=== PATIENT | male | born 1955 | race Hispanic/Latino ===

== ENCOUNTER 2018-01-17 09:02 | Emergency (ER) | payer SELFPAY ==
--- NOTE | 2018-01-17 12:00 | RAD ---
2 VIEW RIGHT FOREARM: Date: 01/17/18 INDICATION: Injury, pain. FINDINGS: Scattered degenerative change present without fracture or dislocation. IMPRESSION: No acute osseous abnormality. POS: [facility]
--- NOTE | 2018-01-17 12:01 | RAD ---
3 VIEW RIGHT SHOULDER: Date: 01/17/18 INDICATION: Injury, pain. FINDINGS: There is no fracture or dislocation. Osteoarthritis of the right AC joint is present, mild to moderat e in degree. IMPRESSION: No acute osseous abnormality of the right shoulder. POS: [facility]
--- NOTE | 2018-01-17 12:02 | RAD ---
2 VIEW RIGHT HUMERUS: Date: 01/17/18 INDICATION: Pain, injury. FINDINGS: There is no fracture or dislocation. IMPRESSION: No acute osseous abnormality. POS: [facility]
--- NOTE | 2018-01-17 12:04 | RAD ---
RIGHT HAND 3 VIEWS: Date: 01/17/18 INDICATION: Pain. FINDINGS: Scattered mild osteoarthritis without fracture or dislocation. There is vascular calcification. Punct ate soft tissue density is seen adjacent to the distal ulna. Degenerative cyst formation seen within the carpus, notably the lunate. IMPRESSION: No acute osseous abnormality. POS: [facility]
--- NOTE | 2018-01-17 12:07 | CT ---
HEAD CT NONCONTRAST: Date; 01/17/18 INDICATION: 62-year-old male with pain. FINDINGS: Ventricular system is normal in size. There is minimal chronic ischemic disease of the cerebral white matter. No intracranial hemorrhage, mass effect, or midline shift. There is mild mucosal thickening of the paranasal sinuses. IMPRESSION: No acute intracranial hemorrhage or mass effect. POS: [facility]
--- NOTE | 2018-01-17 12:08 | CT ---
CERVICAL SPINE CT NONCONTRAST: Date: 01/17/18 CLINICAL HISTORY: Fall with neck injury and pain. FINDINGS: There is multilevel moderate degenerative change of the cervical spine with associated straightening of the normal curvature. A prominent disc osteophyte complex at C3-4 effaces the ventral aspect of th e vertebral canal. No discrete fracture or acute dislocation. No evidence of craniocervical distracti on injury. IMPRESSION: No acute osseous abnormality of the cervical spine. POS: [facility]
== END 2018-01-17 12:27 | disposition home or self-care (01) ==
LOC: ERS 09:02
DX: S43.401A Unspecified sprain of right shoulder joint, initial encounter (principal); F17.210 Nicotine dependence, cigarettes, uncomplicated; Z71.6 Tobacco abuse counseling; W01.0XXA Fall on same level from slipping, tripping and stumbling without subsequent striking against object, initial encounter; Y99.0 Civilian activity done for income or pay
CPT/HCPCS: 70450; 72125; 96372; 99406; J2270

== ENCOUNTER 2024-02-03 04:01 | Emergency (ER) | payer SELFPAY ==
[2024-02-03] MEDS ORDERED: Acetaminophen 500 MG TAB ONE (04:37)
[2024-02-03 04:44] LABS: #Basophils 0.03 10x3/uL (0.0-0.2); %Basophils 0.3 % (0.0-1.0); %Eosinophils 1.6 % (0.0-10.0); %Lymphocytes 19.6 % (21.0-51.0); %Monocytes 7.6 % (0.0-10.0); %Neutrophils 70.6 % (42.0-75.0); Hematocrit 39.6 % (42.0-52.0); Hemoglobin 13.8 g/dL (14.0-18.0); Mean Corpuscular HGB CONC 34.8 g/dL (32.0-36.0); Mean Corpuscular Hemoglobin 29.6 pg (27.0-31.0); Mean Platelet Volume 11.5 fL (7.4-10.4); Platelet Count 251 10x3/uL (130-400); RBC Distribution Width 12.2 % (11.5-14.5); Red Blood Cell (RBC) Count 4.66 mill/uL (4.70-6.10)
[2024-02-03 04:53] LABS: Bacteria/HPF None Seen HPF (None Seen); Bilirubin Negative (Negative); Blood, Urine Negative (Negative); CAUTI Indications for Culture Dysuria,urgency,freq; Clarity Clear (Clear); Glucose, Urine (Dipstick) Greater than 1000 mg/dL (Negative); Ketone, Urine Negative (Negative); Leukocyte Negative Leu/uL (Negative); Nitrite Negative (Negative); Protein, Urine (Dipstick) Negative (Neg-Trace); RBC/HPF None Seen HPF (0-3); Specific Gravity, Urine 1.018 (1.002-1.036); Squamous Epithelial 0-3 HPF (0-3); Urobilinogen Normal mg/dL (Less than 2); WBC/HPF 0-3 HPF (0-3)
[2024-02-03 05:04] LABS: Urine Culture Reflex No No
[2024-02-03 05:07] LABS: ALT (SGPT) 12 U/L (8-55); AST (SGOT) 11 U/L (5-34); Albumin 3.7 g/dL (3.4-4.8); Alkaline Phosphatase 139 U/L (40-110); Anion Gap 13 mmol/L (10-20); BUN (Urea Nitrogen) 13 mg/dL (8.4-25.7); Bilirubin, Total 0.3 mg/dL (0.2-1.2); Calc. Creatinine Clearance 0 mL/min (70-130); Calcium 9.6 mg/dL (7.8-10.44); Carbon Dioxide 27 mmol/L (23-31); Chloride 97 mmol/L (98-107); Estimated GFR 93; Globulin 3.8 g/dL (2.4-3.5); Glucose 343 mg/dL (80-115); Potassium 4.3 mmol/L (3.5-5.1); Protein, Total 7.5 g/dL (5.8-8.1); Sodium 133 mmol/L (136-145); Troponin I Less than 0.010 ng/mL (< 0.028)
[2024-02-03 05:24] LABS: Lipase 393 U/L (8-78)
[2024-02-03] MEDS ORDERED: Ketorolac Tromethamine 30 MG (1 mL) VIAL ONE (06:50)
[2024-02-03] MEDS ORDERED: Iopamidol-370 76% 500 ML MDV (1 ML CHARGE) ONE (10:11)
== END 2024-02-03 07:13 | disposition home or self-care (01) ==
LOC: ERS 04:01
DX: K85.90 Acute pancreatitis without necrosis or infection, unspecified (principal); E11.65 Type 2 diabetes mellitus with hyperglycemia; I10 Essential (primary) hypertension; Z79.84 Long term (current) use of oral hypoglycemic drugs; Z79.899 Other long term (current) drug therapy
CPT/HCPCS: 74177; 80053; 81001; 83690; 84484; 85025; 93005; 96374; J1885; Q9967

== ENCOUNTER 2024-02-22 10:44 | Emergency (ER) | payer SELFPAY ==
[2024-02-22 11:27] LABS: #Basophils 0.04 10x3/uL (0.0-0.2); %Basophils 0.4 % (0.0-1.0); %Eosinophils 1.8 % (0.0-10.0); %Lymphocytes 22.6 % (21.0-51.0); %Monocytes 8.3 % (0.0-10.0); %Neutrophils 66.6 % (42.0-75.0); Hemoglobin 13.1 g/dL (14.0-18.0); Mean Corpuscular HGB CONC 34.5 g/dL (32.0-36.0); Mean Corpuscular Hemoglobin 29.8 pg (27.0-31.0); Mean Corpuscular Volume 86.6 fL (78.0-98.0); Platelet Count 282 10x3/uL (130-400); RBC Distribution Width 11.9 % (11.5-14.5); Red Blood Cell (RBC) Count 4.39 mill/uL (4.70-6.10)
[2024-02-22 12:03] LABS: ALT (SGPT) 10 U/L (8-55); AST (SGOT) 12 U/L (5-34); Albumin 3.8 g/dL (3.4-4.8); Alkaline Phosphatase 117 U/L (40-110); Anion Gap 16 mmol/L (10-20); BUN (Urea Nitrogen) 21 mg/dL (8.4-25.7); Bilirubin, Total 0.2 mg/dL (0.2-1.2); Calc. Creatinine Clearance 0 mL/min (70-130); Calcium 9.1 mg/dL (7.8-10.44); Carbon Dioxide 24 mmol/L (23-31); Chloride 96 mmol/L (98-107); Estimated GFR 60; Globulin 3.3 g/dL (2.4-3.5); Glucose 387 mg/dL (80-115); Potassium 4.6 mmol/L (3.5-5.1); Protein, Total 7.1 g/dL (5.8-8.1); Sodium 131 mmol/L (136-145)
[2024-02-22 12:05] LABS: Troponin I Less than 0.010 ng/mL (< 0.028)
[2024-02-22 13:17] LABS: Bacteria/HPF None Seen HPF (None Seen); Bilirubin Negative (Negative); Blood, Urine Negative (Negative); CAUTI Indications for Culture Alt mental st,lethar; Clarity Clear (Clear); Glucose, Urine (Dipstick) Greater than 1000 mg/dL (Negative); Ketone, Urine Negative (Negative); Leukocyte Negative Leu/uL (Negative); Nitrite Negative (Negative); Protein, Urine (Dipstick) 50 mg/dL (Neg-Trace); RBC/HPF 0-3 HPF (0-3); Specific Gravity, Urine 1.021 (1.002-1.036); Squamous Epithelial 0-3 HPF (0-3); Urobilinogen Normal mg/dL (Less than 2); WBC/HPF 0-3 HPF (0-3); Yeast-Budding 1+ HPF (None Seen)
[2024-02-22 13:24] LABS: Urine Culture Reflex No No
== END 2024-02-22 14:23 | disposition home or self-care (01) ==
LOC: ERS 10:44
DX: E11.65 Type 2 diabetes mellitus with hyperglycemia (principal); R42 Dizziness and giddiness; Z75.8 Other problems related to medical facilities and other health care
CPT/HCPCS: 36415; 70450; 71045; 80053; 81001; 83690; 84484; 85025; 93005

== ENCOUNTER 2024-02-27 14:06 | Emergency (ER) | payer SELFPAY ==
[2024-02-27 14:48] LABS: #Basophils 0.04 10x3/uL (0.0-0.2); %Basophils 0.4 % (0.0-1.0); %Eosinophils 0.8 % (0.0-10.0); %Lymphocytes 13.8 % (21.0-51.0); %Monocytes 8.2 % (0.0-10.0); %Neutrophils 76.5 % (42.0-75.0); Hematocrit 36.9 % (42.0-52.0); Hemoglobin 13.1 g/dL (14.0-18.0); Mean Corpuscular HGB CONC 35.5 g/dL (32.0-36.0); Mean Corpuscular Volume 84.4 fL (78.0-98.0); Mean Platelet Volume 11.2 fL (7.4-10.4); Platelet Count 239 10x3/uL (130-400); Red Blood Cell (RBC) Count 4.37 mill/uL (4.70-6.10)
[2024-02-27 15:14] LABS: ALT (SGPT) 11 U/L (8-55); AST (SGOT) 13 U/L (5-34); Albumin 3.7 g/dL (3.4-4.8); Alkaline Phosphatase 104 U/L (40-110); Anion Gap 18 mmol/L (10-20); BUN (Urea Nitrogen) 19 mg/dL (8.4-25.7); Bilirubin, Total 0.3 mg/dL (0.2-1.2); Calc. Creatinine Clearance 0 mL/min (70-130); Calcium 9.2 mg/dL (7.8-10.44); Carbon Dioxide 21 mmol/L (23-31); Chloride 97 mmol/L (98-107); Estimated GFR 54; Globulin 3.4 g/dL (2.4-3.5); Glucose 336 mg/dL (80-115); Potassium 4.2 mmol/L (3.5-5.1); Protein, Total 7.1 g/dL (5.8-8.1); Sodium 132 mmol/L (136-145)
[2024-02-27] MEDS ORDERED: Acetaminophen 500 MG TAB ONE (16:10)
== END 2024-02-27 16:44 | disposition home or self-care (01) ==
LOC: ERS 14:06
DX: E11.65 Type 2 diabetes mellitus with hyperglycemia (principal)
CPT/HCPCS: 36416; 71045; 80053; 85025; 93005

== ENCOUNTER 2024-11-15 10:34 | Emergency (ER) | payer OTHER ==
[2024-11-15 13:27] LABS: #Basophils 0.04 10x3/uL (0.0-0.2); #Eosinophils 0.29 10x3/uL (0.0-0.7); #Monocytes 0.75 10x3/uL (0.11-0.59); #Neutrophils 8.58 10x3/uL (1.40-6.50); %Basophils 0.3 % (0.0-1.0); %Eosinophils 2.5 % (0.0-10.0); %Lymphocytes 16.2 % (21.0-51.0); %Monocytes 6.5 % (0.0-10.0); %Neutrophils 74.2 % (42.0-75.0); Hematocrit 35.5 % (42.0-52.0); Hemoglobin 12.0 g/dL (14.0-18.0); Mean Corpuscular Hemoglobin 28.5 pg (27.0-31.0); Mean Corpuscular Volume 84.3 fL (78.0-98.0); Platelet Count 370 10x3/uL (130-400); Red Blood Cell (RBC) Count 4.21 mill/uL (4.70-6.10); White Blood Cell (WBC) Count 11.58 10x3/uL (4.8-10.8)
[2024-11-15 13:39] LABS: ALT (SGPT) 15 U/L (Less than 45); AST (SGOT) 14 U/L (11-34); Albumin 3.5 g/dL (3.1-4.5); Alkaline Phosphatase 102 U/L (40-110); Anion Gap 17 mmol/L (10-20); BUN (Urea Nitrogen) 11 mg/dL (8.4-25.7); Bilirubin, Total 0.3 mg/dL (0.3-1.2); Calc. Creatinine Clearance 0 mL/min (70-130); Calcium 9.5 mg/dL (7.8-10.44); Carbon Dioxide 23 mmol/L (23-31); Chloride 97 mmol/L (98-107); Globulin 4.3 g/dL (2.4-3.5); Glucose 137 mg/dL (80-115); Potassium 4.2 mmol/L (3.5-5.1); Sodium 133 mmol/L (136-145)
== END 2024-11-15 14:00 | disposition home or self-care (01) ==
LOC: ERS 10:34
DX: J01.00 Acute maxillary sinusitis, unspecified (principal); J01.10 Acute frontal sinusitis, unspecified; I10 Essential (primary) hypertension; F17.210 Nicotine dependence, cigarettes, uncomplicated
CPT/HCPCS: 36416; 80053; 85025; 99283

== ENCOUNTER 2024-11-21 19:00 | Emergency (ER) | payer OTHER ==
[~2024-11-21 19:00] MED LIST: Iopamidol-370 76% 500 ML MDV (1 ML CHARGE) ONE
[2024-11-21 21:01] LABS: #Basophils 0.03 10x3/uL (0.0-0.2); #Eosinophils Less than 0.03 10x3/uL (0.0-0.7); #Monocytes 0.67 10x3/uL (0.11-0.59); #Neutrophils 12.08 10x3/uL (1.40-6.50); %Basophils 0.2 % (0.0-1.0); %Eosinophils 0.1 % (0.0-10.0); %Lymphocytes 8.3 % (21.0-51.0); %Monocytes 4.8 % (0.0-10.0); %Neutrophils 86.1 % (42.0-75.0); Hematocrit 33.8 % (42.0-52.0); Hemoglobin 11.5 g/dL (14.0-18.0); Mean Corpuscular Hemoglobin 28.8 pg (27.0-31.0); Mean Corpuscular Volume 84.7 fL (78.0-98.0); Platelet Count 342 10x3/uL (130-400); Red Blood Cell (RBC) Count 3.99 mill/uL (4.70-6.10); White Blood Cell (WBC) Count 14.03 10x3/uL (4.8-10.8)
[2024-11-21 21:25] LABS: ALT (SGPT) 9 U/L (Less than 45); AST (SGOT) 14 U/L (11-34); Albumin 3.4 g/dL (3.1-4.5); Alkaline Phosphatase 97 U/L (40-110); Anion Gap 16 mmol/L (10-20); BUN (Urea Nitrogen) 7 mg/dL (8.4-25.7); Bilirubin, Total 0.3 mg/dL (0.3-1.2); Calc. Creatinine Clearance 0 mL/min (70-130); Calcium 9.2 mg/dL (7.8-10.44); Carbon Dioxide 21 mmol/L (23-31); Chloride 94 mmol/L (98-107); Globulin 4.0 g/dL (2.4-3.5); Glucose 191 mg/dL (80-115); Potassium 4.4 mmol/L (3.5-5.1); Sodium 127 mmol/L (136-145)
[2024-11-21] MEDS ORDERED: Metoclopramide HCl 10 MG (2 mL) VIAL ONE (21:30)
[2024-11-21] MEDS ORDERED: Ketorolac Tromethamine 30 MG (1 mL) VIAL ONE (23:19)
[2024-11-21 23:41] LABS: Bacteria/HPF None Seen HPF (None Seen); CAUTI Indications for Culture Alt mental st,lethar; Glucose, Urine (Dipstick) 30 mg/dL (Negative); Leukocyte Negative Leu/uL (Negative); Protein, Urine (Dipstick) Negative (Neg-Trace); RBC/HPF 0-3 HPF (0-3); Specific Gravity, Urine 1.014 (1.002-1.036); WBC/HPF None Seen HPF (0-3)
[2024-11-21 23:44] LABS: Urine Culture Reflex No No
[2024-11-22] MEDS ORDERED: cefTRIAXone (ROCEPHIN) 2 GM VIAL ONE (00:17)
[2024-11-22] MEDS ORDERED: VANCOMYCIN 1.75 GM/350 ML Premix BAG IVPB SCH (00:30)
== END 2024-11-22 09:10 | disposition short-term general hospital (02) ==
LOC: ERS 19:00
DX: H70.91 Unspecified mastoiditis, right ear (principal); M26.601 Right temporomandibular joint disorder, unspecified; R29.700 NIHSS score 0; I10 Essential (primary) hypertension; F17.210 Nicotine dependence, cigarettes, uncomplicated; Z79.4 Long term (current) use of insulin; Z75.8 Other problems related to medical facilities and other health care; Z55.6 Problems related to health literacy
CPT/HCPCS: 70450; 70481; 71045; 80053; 81001; 83880; 85025; 85379; 87040; 87428; 93005; 96365; 96366; 96367; 96375; 99285; J0696; J1885; J2765; J3375; Q9967; 36415

== ENCOUNTER 2024-12-10 02:51 | Emergency (ER) | payer SELFPAY ==
[2024-12-10] MEDS ORDERED: Acetaminophen 500 MG TAB ONE (04:18)
[2024-12-10] MEDS ORDERED: diphenhydrAMINE 50 MG/ML VIAL ONE (04:18)
[2024-12-10] MEDS ORDERED: Prochlorperazine 10 MG/2 ML VIAL ONE (04:19)
== END 2024-12-10 08:00 | disposition home or self-care (01) ==
LOC: ERS 02:51
DX: R51.9 Headache, unspecified (principal); I10 Essential (primary) hypertension; F17.210 Nicotine dependence, cigarettes, uncomplicated
CPT/HCPCS: 70450; 96374; 96375; J0780; J1200; J2919

== ENCOUNTER 2025-02-15 12:17 | Inpatient (IN) | payer OTHER ==
[2025-02-15 14:00] LABS: ALT (SGPT) 61 U/L (Less than 45); AST (SGOT) 70 U/L (11-34); Albumin 3.1 g/dL (3.1-4.5); Alkaline Phosphatase 138 U/L (40-110); Anion Gap 14 mmol/L (10-20); BUN (Urea Nitrogen) 7 mg/dL (8.4-25.7); Bilirubin, Total 0.5 mg/dL (0.3-1.2); Calc. Creatinine Clearance 0 mL/min (70-130); Calcium 9.0 mg/dL (7.8-10.44); Carbon Dioxide 28 mmol/L (23-31); Chloride 99 mmol/L (98-107); Globulin 3.7 g/dL (2.4-3.5); Glucose 113 mg/dL (80-115); Lipase 15 U/L (8-78); Potassium 3.7 mmol/L (3.5-5.1); Sodium 137 mmol/L (136-145)
[2025-02-15 16:19] LABS: #Basophils 0.04 10x3/uL (0.0-0.2); #Eosinophils 0.12 10x3/uL (0.0-0.7); #Monocytes 0.53 10x3/uL (0.11-0.59); #Neutrophils 6.03 10x3/uL (1.40-6.50); %Basophils 0.5 % (0.0-1.0); %Eosinophils 1.6 % (0.0-10.0); %Lymphocytes 11.9 % (21.0-51.0); %Monocytes 6.9 % (0.0-10.0); %Neutrophils 78.8 % (42.0-75.0); Hematocrit 29.2 % (42.0-52.0); Hemoglobin 9.8 g/dL (14.0-18.0); Mean Corpuscular Hemoglobin 29.6 pg (27.0-31.0); Mean Corpuscular Volume 88.2 fL (78.0-98.0); Platelet Count 304 10x3/uL (130-400); Red Blood Cell (RBC) Count 3.31 mill/uL (4.70-6.10); White Blood Cell (WBC) Count 7.65 10x3/uL (4.8-10.8)
[2025-02-15] MEDS ORDERED: Ondansetron PF 4 MG/2 ML Vial IVP PRN (16:58)
[2025-02-15] MEDS ORDERED: Senokot S 8.6-50 MG TAB PO PRN (16:58)
[2025-02-15] MEDS ORDERED: Melatonin 3 MG TAB PO PRN (16:58)
[2025-02-15 19:22] VITALS: BMI 24.9
[2025-02-15] MEDS: Famotidine 20 MG TAB PO SCH (22:21)
[2025-02-15] MEDS: levETIRAcetam 500 MG TAB PO SCH (22:21)
[2025-02-16 04:48] LABS: ALT (SGPT) 59 U/L (Less than 45); AST (SGOT) 69 U/L (11-34); Albumin 2.9 g/dL (3.1-4.5); Alkaline Phosphatase 119 U/L (40-110); Anion Gap 11 mmol/L (10-20); BUN (Urea Nitrogen) 7 mg/dL (8.4-25.7); Bilirubin, Total 0.5 mg/dL (0.3-1.2); Calc. Creatinine Clearance 114 mL/min (70-130); Calcium 8.7 mg/dL (7.8-10.44); Carbon Dioxide 29 mmol/L (23-31); Chloride 100 mmol/L (98-107); Globulin 3.2 g/dL (2.4-3.5); Glucose 91 mg/dL (80-115); Potassium 3.1 mmol/L (3.5-5.1); Sodium 137 mmol/L (136-145)
[2025-02-16] MEDS: Enoxaparin 40 MG (0.4 mL) SYRINGE SC SCH (08:29)
[2025-02-16] MEDS: Aspirin Chewable 81 MG TAB PO SCH (08:30)
[2025-02-16 15:56] VITALS: BMI 24.9
[2025-02-16] MEDS: Nitroglycerin 0.4 MG TAB (25 Tab Bottle) SL PRN (18:18)
[2025-02-16] MEDS: levETIRAcetam 500 MG TAB PO SCH (20:54)
[2025-02-17 04:22] LABS: Hematocrit 25.9 % (42.0-52.0); Hemoglobin 8.7 g/dL (14.0-18.0); Mean Corpuscular Hemoglobin 29.5 pg (27.0-31.0); Mean Corpuscular Volume 87.8 fL (78.0-98.0); Platelet Count 297 10x3/uL (130-400); Red Blood Cell (RBC) Count 2.95 mill/uL (4.70-6.10); White Blood Cell (WBC) Count 6.67 10x3/uL (4.8-10.8)
[2025-02-17 04:40] LABS: Anion Gap 12 mmol/L (10-20); BUN (Urea Nitrogen) 8 mg/dL (8.4-25.7); Calc. Creatinine Clearance 105 mL/min (70-130); Calcium 8.9 mg/dL (7.8-10.44); Carbon Dioxide 28 mmol/L (23-31); Chloride 102 mmol/L (98-107); Glucose 92 mg/dL (80-115); Magnesium 1.7 mg/dL (1.6-2.6); Potassium 3.2 mmol/L (3.5-5.1); Sodium 139 mmol/L (136-145)
[2025-02-17] MEDS: Magnesium 2 GM/50 ML(in water) 2 GM in Premix 1 BAG IVPB SCH (10:18)
[2025-02-17] MEDS ORDERED: Dextrose 50% Abboject 50 ML SYRINGE SLOW IVP PRN (17:23)
[2025-02-17] MEDS ORDERED: Glucagon 1 MG/ML KIT IM PRN (17:23)
[2025-02-18 04:23] LABS: Anion Gap 14 mmol/L (10-20); BUN (Urea Nitrogen) 6 mg/dL (8.4-25.7); Calc. Creatinine Clearance 106 mL/min (70-130); Calcium 8.8 mg/dL (7.8-10.44); Carbon Dioxide 26 mmol/L (23-31); Chloride 102 mmol/L (98-107); Glucose 103 mg/dL (80-115); Magnesium 2.0 mg/dL (1.6-2.6); Potassium 3.8 mmol/L (3.5-5.1); Sodium 138 mmol/L (136-145)
[2025-02-18] MEDS: Acetaminophen 325 MG TAB PO PRN (08:02)
[2025-02-18 15:19] LABS: Bacteria/HPF None Seen HPF (None Seen); CAUTI Indications for Culture Dysuria,urgency,freq; Glucose, Urine (Dipstick) Normal (Negative); Leukocyte Negative Leu/uL (Negative); Protein, Urine (Dipstick) Negative (Neg-Trace); RBC/HPF 0-3 HPF (0-3); Specific Gravity, Urine 1.006 (1.002-1.036); WBC/HPF 0-3 HPF (0-3)
[2025-02-18 15:22] LABS: Urine Culture Reflex No No
[2025-02-18] MEDS: Fluconazole In NaCl,Iso-Osm 400 MG in Premix 1 BAG IVPB SCH (18:22)
[2025-02-18] MEDS: Linezolid 600 MG in Premix 1 BAG IVPB SCH (20:35)
[2025-02-19] MEDS: Lidocaine 2% 6 ML (Jelly) SYR TOP SCH (02:07)
[2025-02-19 05:00] LABS: #Basophils 0.04 10x3/uL (0.0-0.2); #Eosinophils 0.30 10x3/uL (0.0-0.7); #Monocytes 0.74 10x3/uL (0.11-0.59); #Neutrophils 3.48 10x3/uL (1.40-6.50); %Basophils 0.6 % (0.0-1.0); %Eosinophils 4.7 % (0.0-10.0); %Lymphocytes 27.7 % (21.0-51.0); %Monocytes 11.7 % (0.0-10.0); %Neutrophils 55.1 % (42.0-75.0); Hematocrit 25.9 % (42.0-52.0); Hemoglobin 8.8 g/dL (14.0-18.0); Mean Corpuscular Hemoglobin 29.6 pg (27.0-31.0); Mean Corpuscular Volume 87.2 fL (78.0-98.0); Platelet Count 262 10x3/uL (130-400); Red Blood Cell (RBC) Count 2.97 mill/uL (4.70-6.10); White Blood Cell (WBC) Count 6.32 10x3/uL (4.8-10.8)
[2025-02-19 05:13] LABS: Anion Gap 16 mmol/L (10-20); BUN (Urea Nitrogen) 7 mg/dL (8.4-25.7); Calc. Creatinine Clearance 91 mL/min (70-130); Calcium 8.9 mg/dL (7.8-10.44); Carbon Dioxide 31 mmol/L (23-31); Chloride 103 mmol/L (98-107); Glucose 135 mg/dL (80-115); Potassium 3.6 mmol/L (3.5-5.1); Sodium 146 mmol/L (136-145)
[2025-02-19] MEDS: Finasteride 5 MG TAB PO SCH (09:41)
[2025-02-19] MEDS: levETIRAcetam 500 mg/5 ml Oral Solution PO SCH (09:42)
[2025-02-19 14:07] LABS: Hematocrit 24.2 % (42.0-52.0); Hemoglobin 8.2 g/dL (14.0-18.0)
[2025-02-19 21:52] LABS: Hematocrit 19.9 % (42.0-52.0); Hemoglobin 6.7 g/dL (14.0-18.0)
[2025-02-20 04:52] LABS: Hematocrit 24.2 % (42.0-52.0); Hemoglobin 8.0 g/dL (14.0-18.0); Mean Corpuscular Hemoglobin 29.2 pg (27.0-31.0); Mean Corpuscular Volume 88.3 fL (78.0-98.0); Platelet Count 231 10x3/uL (130-400); Red Blood Cell (RBC) Count 2.74 mill/uL (4.70-6.10); White Blood Cell (WBC) Count 7.23 10x3/uL (4.8-10.8)
[2025-02-20 05:14] LABS: ALT (SGPT) 43 U/L (Less than 45); AST (SGOT) 41 U/L (11-34); Albumin 2.6 g/dL (3.1-4.5); Alkaline Phosphatase 110 U/L (40-110); Anion Gap 12 mmol/L (10-20); BUN (Urea Nitrogen) 7 mg/dL (8.4-25.7); Bilirubin, Total 0.4 mg/dL (0.3-1.2); Calc. Creatinine Clearance 99 mL/min (70-130); Calcium 8.3 mg/dL (7.8-10.44); Carbon Dioxide 29 mmol/L (23-31); Chloride 98 mmol/L (98-107); Globulin 2.8 g/dL (2.4-3.5); Glucose 187 mg/dL (80-115); Potassium 3.6 mmol/L (3.5-5.1); Sodium 135 mmol/L (136-145)
[2025-02-20 11:41] LABS: Hematocrit 23.8 % (42.0-52.0); Hemoglobin 8.1 g/dL (14.0-18.0)
[2025-02-20 18:33] LABS: Hematocrit 22.7 % (42.0-52.0); Hemoglobin 7.9 g/dL (14.0-18.0)
[2025-02-21 04:23] LABS: Hematocrit 22.9 % (42.0-52.0); Hemoglobin 7.8 g/dL (14.0-18.0); Mean Corpuscular Hemoglobin 29.5 pg (27.0-31.0); Mean Corpuscular Volume 86.7 fL (78.0-98.0); Platelet Count 238 10x3/uL (130-400); Red Blood Cell (RBC) Count 2.64 mill/uL (4.70-6.10); White Blood Cell (WBC) Count 5.20 10x3/uL (4.8-10.8)
[2025-02-21 04:48] LABS: Anion Gap 11 mmol/L (10-20); BUN (Urea Nitrogen) 9 mg/dL (8.4-25.7); Calc. Creatinine Clearance 97 mL/min (70-130); Calcium 8.4 mg/dL (7.8-10.44); Carbon Dioxide 29 mmol/L (23-31); Chloride 101 mmol/L (98-107); Glucose 97 mg/dL (80-115); Potassium 3.7 mmol/L (3.5-5.1); Sodium 137 mmol/L (136-145)
[2025-02-22 05:20] LABS: Anion Gap 9 mmol/L (10-20); BUN (Urea Nitrogen) 10 mg/dL (8.4-25.7); Calc. Creatinine Clearance 99 mL/min (70-130); Calcium 8.4 mg/dL (7.8-10.44); Carbon Dioxide 29 mmol/L (23-31); Chloride 99 mmol/L (98-107); Glucose 178 mg/dL (80-115); Potassium 3.8 mmol/L (3.5-5.1); Sodium 133 mmol/L (136-145)
[2025-02-22 05:30] LABS: Hematocrit 21.8 % (42.0-52.0); Hemoglobin 7.5 g/dL (14.0-18.0); Mean Corpuscular Hemoglobin 30.1 pg (27.0-31.0); Mean Corpuscular Volume 87.6 fL (78.0-98.0); Platelet Count 256 10x3/uL (130-400); Red Blood Cell (RBC) Count 2.49 mill/uL (4.70-6.10); White Blood Cell (WBC) Count 5.33 10x3/uL (4.8-10.8)
[2025-02-23 04:28] LABS: Hematocrit 24.3 % (42.0-52.0); Hemoglobin 8.0 g/dL (14.0-18.0); Mean Corpuscular Hemoglobin 29.7 pg (27.0-31.0); Mean Corpuscular Volume 90.3 fL (78.0-98.0); Platelet Count 241 10x3/uL (130-400); Red Blood Cell (RBC) Count 2.69 mill/uL (4.70-6.10); White Blood Cell (WBC) Count 5.84 10x3/uL (4.8-10.8)
[2025-02-23 04:43] LABS: Anion Gap 12 mmol/L (10-20); BUN (Urea Nitrogen) 11 mg/dL (8.4-25.7); Calc. Creatinine Clearance 92 mL/min (70-130); Calcium 8.8 mg/dL (7.8-10.44); Carbon Dioxide 27 mmol/L (23-31); Chloride 100 mmol/L (98-107); Glucose 99 mg/dL (80-115); Potassium 4.2 mmol/L (3.5-5.1); Sodium 135 mmol/L (136-145)
[2025-02-25 15:43] VITALS: BP 94/57; TEMP 97
== END 2025-02-25 18:55 | DRG 540 ==
LOC: ERS 12:17 → ERHOLD 15:45 → 2NO 18:07 → OBSVTOIN 02-16 11:31
PROVIDERS: ADMIT Internal Medicine; ATTEND Internal Medicine
PROC: 4A00X4Z Measurement of Central Nervous Electrical Activity, External Approach (ICD-10-PCS; principal; 2025-02-16)
PROC: 30233N1 Transfusion of Nonautologous Red Blood Cells into Peripheral Vein, Percutaneous Approach (ICD-10-PCS; 2025-02-20)
DX: M86.8X8 Other osteomyelitis, other site (principal); D62 Acute posthemorrhagic anemia; I10 Essential (primary) hypertension; E78.5 Hyperlipidemia, unspecified; E11.9 Type 2 diabetes mellitus without complications; N40.0 Benign prostatic hyperplasia without lower urinary tract symptoms; Z86.73 Personal history of transient ischemic attack (TIA), and cerebral infarction without residual deficits; D64.9 Anemia, unspecified; E87.6 Hypokalemia; G40.909 Epilepsy, unspecified, not intractable, without status epilepticus; Z98.1 Arthrodesis status; Z79.899 Other long term (current) drug therapy; R33.9 Retention of urine, unspecified; H70.90 Unspecified mastoiditis, unspecified ear
CPT/HCPCS: 36415; 36416; 36430; 70450; 70551; 70552; 71275; 74174; 76376; 80048; 80053; 81001; 83690; 83735; 83880; 84484; 85025; 85027; 86850; 86900; 86901; 93005; 93880; 94760; 95700; 95711; 95957; 96360; 96361; 96372; 96374; 96375; 96376; G0378; J0878; J1450; J1650; J1815; J2020; J2183; J2248; J2272; J3475; J7030; J7120; P9016; Q9967